=== PATIENT | male | born 1995 | race Caucasian/White ===

== ENCOUNTER 2020-01-11 10:02 | Emergency (ER) | payer BC, OTHER ==
[~2020-01-11] VITALS: Ht 177.8 cm; Wt 77.1 kg
[2020-01-11 10:09] VITALS: BP 133/85
[2020-01-11] MEDS ORDERED: AZIT250T9 PO (12:54)
== END 2020-01-11 13:09 | disposition home or self-care (01) ==
LOC: ER 10:02
DX: U07.1 COVID-19 (principal)
CPT/HCPCS: 36415; 87070; 87426; 87804; 87880